=== PATIENT | male | born 1955 | race Caucasian/White ===

== ENCOUNTER 2019-09-02 08:17 | Day surgery (SDC) | payer OTHER ==
[2019-09-02] MEDS ORDERED: ONDANSETRON HCL INJ/PF 4 MG/2 ML SDV ONE (08:34)
[2019-09-02] MEDS ORDERED: DIPHENHYDRAMINE HCL 50 MG/ML VIAL ONE (08:34)
[2019-09-02] MEDS ORDERED: NALOXONE HCL INJ/PF 0.4 MG/1 ML SDV ONE (08:34)
[2019-09-02] MEDS ORDERED: EPINEPHRINE INJ 1 MG/10 ML DISP.SYRIN ONE (08:35)
[2019-09-02] MEDS ORDERED: FLUMAZENIL INJ 0.5 MG/5 ML VIAL ONE (08:35)
[2019-09-02] MEDS ORDERED: GLUCAGON,HUMAN RECOMB 1 MG INJ ONE (08:35)
[2019-09-02] MEDS: MIDAZOLAM 2 MG/2 ML INJ ONE ×2 (08:50→08:55)
[2019-09-02] MEDS: FENTANYL CITRATE INJ/PF 100 MCG/2 ML AMPUL ONE ×2 (08:50→08:55)
--- NOTE | 2019-09-02 09:09 | Operative Report ---
Operative Report DATE OF SURGERY: 09/02/19 Operative Report: Risk, benefits and alternatives of the procedure including the risk of bleeding, perforation requiring surgery have been explained to the patient in detail and informed consent has been obtained. Patient was taken back to the endoscopy suite and placed in the left, lateral decubital position. Timeout was called. Rectal examination is done which did not reveal any masses, tears or fissures. An Olympus videoscope was introduced into the patient's rectum. Scope was then carefully advanced all the way to the cecum. Cecum was identified by the usual anatomical landmarks of the ileocecal valve as well as the appendiceal office. Photodocumentation is obtained. Prep is good. All segments visualized. Retroflexion maneuvers performed. PREOPERATIVE DIAGNOSIS: Personal history of polyps POSTOPERATIVE DIAGNOSIS: Rectosigmoid polyp removed via snare polypectomy and retrieved. Sessile polyp removed via biopsy forceps and retrieved. Diverticulosis. Internal hemorrhoids OPERATION: Colonoscopy with snare polypectomy. Colonoscopy with biopsy SURGEON: RENARD RUCKER ANESTHESIA: LMAC TISSUE REMOVED OR ALTERED: As noted above. COMPLICATIONS: None. ESTIMATED BLOOD LOSS: None. INTRAOPERATIVE FINDINGS: As noted above. PROCEDURE: Patient tolerated the procedure well. No immediate postprocedure complications are noted. Patient is discharged in good condition. Discharge date 09/01/2019. Discharge diet: Regular. Discharge activity: Regular. 2 to 3-week follow-up to discuss findings. Patient is instructed to call the office or proceed to the emergency room should there be any further problems or questions. Wait on the pathology. 3 to 5-year surveillance colonoscopy.
[2019-09-02 11:14] VITALS: BP 114/78
== END 2019-09-02 11:18 | disposition home or self-care (01) ==
LOC: END 08:17
PROVIDERS: ATTEND Internal Medicine Gastroenterology
DX: Z12.11 Encounter for screening for malignant neoplasm of colon (principal); Z86.010 Personal history of colon polyps; D12.5 Benign neoplasm of sigmoid colon; K57.30 Diverticulosis of large intestine without perforation or abscess without bleeding; K64.8 Other hemorrhoids
CPT/HCPCS: 45380; 45385; 88305 ×2; J2250; J3010; J0171; J1200; J1610; J2310; J2405; J3490